=== PATIENT | male | born 1980 | race Asian ===

== ENCOUNTER 2018-11-27 12:21 | Emergency (ER) | payer OTHER ==
[~2018-11-27] VITALS: Ht 175.3 cm; Wt 70.5 kg
[~2018-11-27 12:21] MED LIST: GLIP5 PO; IPRA4AER IH; METF500T7 PO; METO25 PO; PRED10 PO; SERT100T12 PO
[2018-11-27] MEDS ORDERED: IPRATROPIUM BROMIDE 0.5 MG/2.5 ML NEB SOLUTION NEB ONE (12:30)
[2018-11-27] MEDS ORDERED: PredniSONE 20 MG TABLET PO ONE (12:30)
[2018-11-27] MEDS ORDERED: ALBUTEROL SULFATE 2.5 MG/0.5 ML NEB SOLUTION NEB ONE (12:30)
[2018-11-27 14:12] VITALS: BP 132/81
== END 2018-11-27 14:18 | disposition home or self-care (01) ==
LOC: EMS 12:22
DX: J45.901 Unspecified asthma with (acute) exacerbation (principal); I10 Essential (primary) hypertension; F31.9 Bipolar disorder, unspecified; F15.90 Other stimulant use, unspecified, uncomplicated; F17.210 Nicotine dependence, cigarettes, uncomplicated; Z79.84 Long term (current) use of oral hypoglycemic drugs
CPT/HCPCS: 71045; 94640; 99283; J7512

== ENCOUNTER 2018-12-26 13:05 | Inpatient (IN) | payer SELFPAY ==
[~2018-12-26] VITALS: Ht 175.3 cm; Wt 61.9 kg
[2018-12-26] MEDS ORDERED: IPRATROPIUM BROMIDE 0.5 MG/2.5 ML NEB SOLUTION NEB ONE ×2 (13:15→14:15)
[2018-12-26] MEDS ORDERED: ALBUTEROL SULFATE 2.5 MG/0.5 ML NEB SOLUTION NEB ONE (13:15)
[2018-12-26] MEDS ORDERED: MethylPREDNISolone SOD SUCC 125 MG/2 ML VIAL IVP ONE (14:15)
[2018-12-26] MEDS ORDERED: LEVALBUTEROL HCL 1.25 MG/0.5 ML NEB SOLUTION NEB ONE (14:15)
[2018-12-26 15:07] LABS: BASOPHILS % (AUTO) 0.4 % (0.0-2.0); EOSINOPHILS % (AUTO) 3.1 % (1.0-6.0); HEMATOCRIT 49.7 % (41-53); LYMPHOCYTES # (AUTO) 0.8 K/uL (1.0-4.8); LYMPHOCYTES % (AUTO) 10.4 % (22.0-44.0); MEAN CORPUSCULAR HEMOGLOBIN 27.2 pg (26.0-34.0); MEAN CORPUSCULAR HGB CONC 32.2 G/dL (31.0-37.0); MEAN CORPUSCULAR VOLUME 85 fL (80-100); MONOCYTES # (AUTO) 0.8 K/uL (0.1-1.0); MONOCYTES % (AUTO) 10.6 % (2.0-9.0); NEUTROPHILS # (AUTO) 5.7 K/uL (1.8-7.7); NEUTROPHILS % (AUTO) 75.5 % (40.0-70.0); PLATELET COUNT (AUTO) 354 K/uL (150-450); RED BLOOD CELL COUNT(AUTO) 5.87 MIL/uL (4.50-5.90); RED CELL DISTRIBUTION WIDTH 16.7 % (11.5-14.5)
[2018-12-26 15:20] LABS: ANION GAP 11 mmol/L (8-16); CALCIUM, TOTAL 9.9 mg/dL (8.8-10.5); CARBON DIOXIDE 29 mmol/L (22-29); CHLORIDE 101 mmol/L (98-107); CREATININE 0.86 mg/dL (0.60-1.30); GLOMERULAR FILTR. RATE CALC > 60 mL/min (>60); GLUCOSE,RANDOM 156 mg/dL (70-110); POTASSIUM 5.1 mmol/L (3.5-5.1); SODIUM SERUM 141 mmol/L (136-145); UREA NITROGEN, BLOOD 9 mg/dL (7-18)
[2018-12-26 15:24] LABS: ALANINE AMINOTRANSFERASE 18 U/L (12-78); ALBUMIN 4.5 g/dL (3.4-5.0); ALKALINE PHOSPHATASE 107 U/L (46-116); ASPARTATE AMINOTRANSFERASE 19 U/L (15-37); BILIRUBIN,TOTAL 0.4 mg/dL (0.1-1.0); TOTAL PROTEIN, SERUM 9.1 g/dL (6.4-8.2)
[2018-12-26] MEDS ORDERED: MORPHINE SULFATE 2 MG/ML SYRINGE IVP PRN (17:00)
[2018-12-26] MEDS ORDERED: BISACODYL 10 MG RECTAL RECTAL SUPPOSITORY PR PRN (17:00)
[2018-12-26] MEDS ORDERED: ONDANSETRON HCL 4 MG/2 ML VIAL IVP PRN (17:00)
[2018-12-26] MEDS ORDERED: ALBUTEROL SULFATE 2.5 MG/0.5 ML NEB SOLUTION NEB PRN (17:00)
[2018-12-26] MEDS ORDERED: ACETAMINOPHEN 325 MG TABLET PO PRN (17:00)
[2018-12-26] MEDS ORDERED: IPRATROPIUM BROMIDE 0.5 MG/2.5 ML NEB SOLUTION NEB PRN (17:00)
[2018-12-26] MEDS ORDERED: MAGNESIUM HYDROXIDE SUSPENSION 30 ML UDCUP PO PRN (17:00)
[2018-12-26] MEDS ORDERED: ZOLPIDEM TARTRATE 5 MG TABLET PO PRN (17:00)
[2018-12-26 17:47] VITALS: BP 149/102
[2018-12-26 17:59] LABS: ABG A-A DIFF O2 39.8 mmHg (10-20.0); ABG BASE EXCESS -0.7 mmol/L (-2.0-3.0); ABG CARBOXYHEMOGLOBIN 0.1 % (0.0-1.5); ABG HCO3 23.9 mmol/L (22.0-26.0); ABG METHEMOGLOBIN 0.3 % (0.0-1.5); ABG OXYGEN CONTENT 20.1 mL/dL (15.0-23.0); ABG OXYGEN SATURATION 97.9 % (95.0-98.0); ABG OXYHEMOGLOBIN 97.5 % (94.0-100.0); ABG PCO2 41 mmHg (35-45); ABG PH 7.389 (7.350-7.450); ABG TOTAL HEMOGLOBIN 14.6 G/dL (12.0-18.0); PO2, ARTERIAL BG 111.5 mmHg (92.0-100.0); SOURCE, BLOOD GAS ARTERIAL; TEMPERATURE, FAHRENHEIT, BG 98.5 FAHREN (96.0-98.6)
[2018-12-26 18:00] LABS: O2 DEVICE,BLOOD GAS CANNULA (ROOM AIR); SITE, BLOOD GAS LFT RADIAL
[2018-12-26] MEDS: MetFORMIN HCL 500 MG ER TABLET PO SCH ×2 (18:00→18:28)
[2018-12-26] MEDS: MethylPREDNISolone SOD SUCC 125 MG/2 ML VIAL IVP SCH (18:29)
[2018-12-26] MEDS: GlipiZIDE 5 MG TABLET PO SCH (18:29)
[2018-12-26] MEDS: ALBUTEROL SULFATE 2.5 MG/0.5 ML NEB SOLUTION NEB SCH (19:19)
[2018-12-26] MEDS: IPRATROPIUM BROMIDE 0.5 MG/2.5 ML NEB SOLUTION NEB SCH (19:19)
[2018-12-26 19:42] VITALS: BP 140/94
[2018-12-26] MEDS: DOCUSATE SODIUM 100 MG CAPSULE PO SCH (20:47)
[2018-12-26] MEDS: AZITHROMYCIN 500 MG/NS 250 ML IV SCH (20:47)
[2018-12-26] MEDS: GuaiFENesin SR 600 MG ER TABLET PO SCH (20:47)
[2018-12-26] MEDS: BENZONATATE 100 MG CAPSULE PO SCH (20:48)
[2018-12-26] MEDS: METOPROLOL TARTRATE 25 MG TABLET PO SCH (20:49)
[2018-12-26] MEDS ORDERED: SODIUM CHLORIDE 0.9% 250 ML IV ONE (20:55)
[2018-12-26] MEDS ORDERED: DEXTROSE 50%-WATER 25 GM/50 ML SYRINGE IVP PRN (21:00)
[2018-12-26] MEDS: INSULIN LISPRO 100 UNITS/ML SQ PRN (21:05)
[2018-12-26 21:45] LABS: GLUCOMETER DEV NAME(LOC) 5S.1; GLUCOSE,POINT OF CARE 346 MG/DL (70-110)
[2018-12-26 21:50] LABS: GLUCOMETER DEV NAME(LOC) 5S.1; GLUCOSE,POINT OF CARE 265 MG/DL (70-110)
[2018-12-26] MEDS: CefTRIAXone 1 GM/DEXTROSE 50 ML IV SCH (22:10)
[2018-12-27 00:11] VITALS: BP 145/94
[2018-12-27] MEDS: HEPARIN SODIUM,PORCINE 5,000 UNITS/ML VIAL SQ SCH ×4 (00:20→23:32)
[2018-12-27] MEDS: MethylPREDNISolone SOD SUCC 125 MG/2 ML VIAL IVP SCH ×5 (00:20→23:32)
[2018-12-27] MEDS: ALBUTEROL SULFATE 2.5 MG/0.5 ML NEB SOLUTION NEB SCH ×4 (01:26→20:00)
[2018-12-27] MEDS: IPRATROPIUM BROMIDE 0.5 MG/2.5 ML NEB SOLUTION NEB SCH ×4 (01:26→20:00)
[2018-12-27 04:16] VITALS: BP 131/86
[2018-12-27] MEDS: INSULIN LISPRO 100 UNITS/ML SQ PRN ×4 (05:46→20:09)
[2018-12-27] MEDS: GlipiZIDE 5 MG TABLET PO SCH ×2 (05:47→18:28)
[2018-12-27 07:56] VITALS: BP 117/90
[2018-12-27] MEDS: MetFORMIN HCL 500 MG ER TABLET PO SCH ×2 (08:20→18:28)
[2018-12-27] MEDS: GuaiFENesin SR 600 MG ER TABLET PO SCH ×2 (08:21→20:03)
[2018-12-27] MEDS: DOCUSATE SODIUM 100 MG CAPSULE PO SCH ×2 (08:21→20:04)
[2018-12-27] MEDS: METOPROLOL TARTRATE 25 MG TABLET PO SCH ×2 (08:23→20:04)
[2018-12-27] MEDS: SERTRALINE HCL 100 MG TABLET PO SCH (08:23)
[2018-12-27] MEDS: BENZONATATE 100 MG CAPSULE PO SCH ×3 (08:23→20:04)
[2018-12-27] MEDS: PANTOPRAZOLE SODIUM 40 MG DR TABLET PO SCH (08:23)
[2018-12-27 11:12] VITALS: BP 118/80
[2018-12-27 14:59] VITALS: BP 136/86
[2018-12-27 16:25] LABS: GLUCOMETER DEV NAME(LOC) 5S.2; GLUCOSE,POINT OF CARE 142 MG/DL (70-110)
[2018-12-27 16:25] LABS: GLUCOMETER DEV NAME(LOC) 5S.2; GLUCOSE,POINT OF CARE 276 MG/DL (70-110)
[2018-12-27 16:26] LABS: GLUCOMETER DEV NAME(LOC) 5S.2; GLUCOSE,POINT OF CARE 144 MG/DL (70-110)
[2018-12-27] MEDS: HYDROCODONE/ACETAMINOPHEN 5-325 MG TABLET PO PRN (18:32)
[2018-12-27 19:21] VITALS: BP 131/83
[2018-12-27] MEDS: AZITHROMYCIN 500 MG/NS 250 ML IV SCH (20:03)
[2018-12-27] MEDS: CefTRIAXone 1 GM/DEXTROSE 50 ML IV SCH (21:10)
[2018-12-28] VITALS (7 sets, daily range): BP systolic 125–140; BP diastolic 77–93
[2018-12-28] MEDS: ALBUTEROL SULFATE 2.5 MG/0.5 ML NEB SOLUTION NEB SCH ×4 (03:43→20:18)
[2018-12-28] MEDS: IPRATROPIUM BROMIDE 0.5 MG/2.5 ML NEB SOLUTION NEB SCH ×4 (03:43→20:18)
[2018-12-28] MEDS: INSULIN LISPRO 100 UNITS/ML SQ PRN ×4 (05:45→23:09)
[2018-12-28] MEDS: GlipiZIDE 5 MG TABLET PO SCH ×2 (05:45→17:49)
[2018-12-28] MEDS: MethylPREDNISolone SOD SUCC 125 MG/2 ML VIAL IVP SCH ×4 (05:45→22:56)
[2018-12-28 06:05] LABS: GLUCOMETER DEV NAME(LOC) 5S.2; GLUCOSE,POINT OF CARE 216 MG/DL (70-110)
[2018-12-28 06:05] LABS: GLUCOMETER DEV NAME(LOC) 5S.2; GLUCOSE,POINT OF CARE 218 MG/DL (70-110)
[2018-12-28 06:25] LABS: GLUCOMETER DEV NAME(LOC) 5S.1; GLUCOSE,POINT OF CARE 178 MG/DL (70-110)
[2018-12-28] MEDS: HEPARIN SODIUM,PORCINE 5,000 UNITS/ML VIAL SQ SCH ×3 (08:00→22:57)
[2018-12-28] MEDS: SERTRALINE HCL 100 MG TABLET PO SCH (08:40)
[2018-12-28] MEDS: GuaiFENesin SR 600 MG ER TABLET PO SCH ×2 (08:40→22:55)
[2018-12-28] MEDS: METOPROLOL TARTRATE 25 MG TABLET PO SCH ×2 (08:40→22:56)
[2018-12-28] MEDS: MetFORMIN HCL 500 MG ER TABLET PO SCH ×2 (08:40→17:48)
[2018-12-28] MEDS: BENZONATATE 100 MG CAPSULE PO SCH ×3 (08:40→22:56)
[2018-12-28] MEDS: PANTOPRAZOLE SODIUM 40 MG DR TABLET PO SCH (08:40)
[2018-12-28] MEDS: DOCUSATE SODIUM 100 MG CAPSULE PO SCH ×2 (08:40→21:00)
[2018-12-28] MEDS: HYDROCODONE/ACETAMINOPHEN 5-325 MG TABLET PO PRN (16:02)
[2018-12-28] MEDS: BUDESONIDE 0.5 MG/2 ML NEB SOLUTION NEB SCH (20:18)
[2018-12-28 21:05] LABS: GLUCOMETER DEV NAME(LOC) 5S.2; GLUCOSE,POINT OF CARE 244 MG/DL (70-110)
[2018-12-28 21:05] LABS: GLUCOMETER DEV NAME(LOC) 5S.1; GLUCOSE,POINT OF CARE 299 MG/DL (70-110)
[2018-12-28] MEDS: CefTRIAXone 1 GM/DEXTROSE 50 ML IV SCH (22:55)
[2018-12-28] MEDS: AZITHROMYCIN 500 MG/NS 250 ML IV SCH (22:55)
[2018-12-29] MEDS: ALBUTEROL SULFATE 2.5 MG/0.5 ML NEB SOLUTION NEB SCH ×3 (01:44→14:00)
[2018-12-29] MEDS: IPRATROPIUM BROMIDE 0.5 MG/2.5 ML NEB SOLUTION NEB SCH ×3 (01:44→14:00)
[2018-12-29 05:07] VITALS: BP 128/88
[2018-12-29] MEDS: MethylPREDNISolone SOD SUCC 125 MG/2 ML VIAL IVP SCH ×2 (06:28→12:18)
[2018-12-29] MEDS: INSULIN LISPRO 100 UNITS/ML SQ PRN ×2 (06:30→12:22)
[2018-12-29] MEDS: GlipiZIDE 5 MG TABLET PO SCH (06:34)
[2018-12-29] MEDS ORDERED: 0.9% SODIUM CHLORIDE 5 ML NEB SOLUTION NEB ONE (07:17)
[2018-12-29] MEDS: BUDESONIDE 0.5 MG/2 ML NEB SOLUTION NEB SCH (07:24)
[2018-12-29 08:07] VITALS: BP 144/93
[2018-12-29] MEDS: GuaiFENesin SR 600 MG ER TABLET PO SCH (08:34)
[2018-12-29] MEDS: DOCUSATE SODIUM 100 MG CAPSULE PO SCH (08:34)
[2018-12-29] MEDS: PANTOPRAZOLE SODIUM 40 MG DR TABLET PO SCH (08:34)
[2018-12-29] MEDS: SERTRALINE HCL 100 MG TABLET PO SCH (08:34)
[2018-12-29] MEDS: MetFORMIN HCL 500 MG ER TABLET PO SCH (08:34)
[2018-12-29] MEDS: BENZONATATE 100 MG CAPSULE PO SCH ×2 (08:34→15:50)
[2018-12-29] MEDS: HEPARIN SODIUM,PORCINE 5,000 UNITS/ML VIAL SQ SCH (08:35)
[2018-12-29] MEDS: METOPROLOL TARTRATE 25 MG TABLET PO SCH (08:35)
[2018-12-29 11:04] LABS: GLUCOMETER DEV NAME(LOC) 5S.1; GLUCOSE,POINT OF CARE 307 MG/DL (70-110)
[2018-12-29 11:59] LABS: GLUCOMETER DEV NAME(LOC) 5S.2; GLUCOSE,POINT OF CARE 273 MG/DL (70-110)
[2018-12-29 11:59] LABS: GLUCOMETER DEV NAME(LOC) 5S.2; GLUCOSE,POINT OF CARE 239 MG/DL (70-110)
[2018-12-29 12:08] VITALS: BP 138/89
[2018-12-29] MEDS ORDERED: ADV250 IH (15:22)
== END 2018-12-29 16:00 | disposition home or self-care (01) | DRG 189 ==
LOC: EMS 13:05 → 5S 16:18
PROVIDERS: ADMIT Internal Medicine; ATTEND Internal Medicine
PROC: 5A09357 Assistance with Respiratory Ventilation, Less than 24 Consecutive Hours, Continuous Positive Airway Pressure (ICD-10-PCS; principal; 2018-12-26)
DX: J96.00 Acute respiratory failure, unspecified whether with hypoxia or hypercapnia (principal); E43 Unspecified severe protein-calorie malnutrition; J45.901 Unspecified asthma with (acute) exacerbation; E11.9 Type 2 diabetes mellitus without complications; I10 Essential (primary) hypertension; F31.9 Bipolar disorder, unspecified; R56.9 Unspecified convulsions; F41.9 Anxiety disorder, unspecified; F10.10 Alcohol abuse, uncomplicated; F17.200 Nicotine dependence, unspecified, uncomplicated; Z68.20 Body mass index [BMI] 20.0-20.9, adult
CPT/HCPCS: 82805; 93005; 94640; 94660; 99291; G0378; J0456; J0696; J1644; J2930; J7050

== ENCOUNTER 2020-08-17 16:09 | Inpatient (IN) | payer OTHER ==
[~2020-08-17] VITALS: Ht 167.6 cm; Wt 56.7 kg
[~2020-08-17 16:09] MED LIST changes: +FLUT1DIS6 IH; +METF-911 PO; -METF500T7 PO
[2020-08-17] MEDS ORDERED: 0.9% SODIUM CHLORIDE 10 ML SYRINGE IVP PRN ×2 (16:30→19:30)
[2020-08-17] MEDS ORDERED: ALBUTEROL SULFATE HFA 90 MCG/PUFF 8 GM INHALER IH ONE (16:30)
[2020-08-17] MEDS ORDERED: MAGNESIUM SULFATE 2 GM/WATER 50 ML IV ONE (16:45)
[2020-08-17] MEDS ORDERED: LEVALBUTEROL HCL 1.25 MG/0.5 ML NEB SOLUTION NEB ONE (16:45)
[2020-08-17] MEDS ORDERED: IPRATROPIUM BROMIDE 0.5 MG/2.5 ML NEB SOLUTION NEB ONE (16:45)
[2020-08-17] MEDS ORDERED: MethylPREDNISolone SOD SUCC 125 MG/2 ML VIAL IVP ONE (16:45)
[2020-08-17 16:57] LABS: BASOPHILS % (AUTO) 0.6 % (0.0-2.0); EOSINOPHILS % (AUTO) 6.4 % (1.0-6.0); HEMATOCRIT 46.7 % (41-53); HEMOGLOBIN 15.2 g/dL (13.5-17.5); LYMPHOCYTES % (AUTO) 13.4 % (22.0-44.0); MEAN CORPUSCULAR HEMOGLOBIN 28.6 pg (26.0-34.0); MEAN CORPUSCULAR HGB CONC 32.5 G/dL (31.0-37.0); MEAN CORPUSCULAR VOLUME 88 fL (80-100); MONOCYTES # (AUTO) 0.6 K/uL (0.1-1.0); MONOCYTES % (AUTO) 8.5 % (2.0-9.0); NEUTROPHILS # (AUTO) 5.3 K/uL (1.8-7.7); NEUTROPHILS % (AUTO) 71.1 % (40.0-70.0); PLATELET COUNT (AUTO) 283 K/uL (150-450); RED BLOOD CELL COUNT(AUTO) 5.31 MIL/uL (4.50-5.90); RED CELL DISTRIBUTION WIDTH 13.2 % (11.5-14.5)
[2020-08-17 17:07] LABS: ANION GAP 8 mmol/L (8-16); CALCIUM, TOTAL 9.5 mg/dL (8.8-10.5); CARBON DIOXIDE 30 mmol/L (22-29); CHLORIDE 99 mmol/L (98-107); CREATININE 0.95 mg/dL (0.60-1.30); GLOMERULAR FILTR. RATE CALC > 60 mL/min (>60); GLUCOSE,RANDOM 107 mg/dL (70-110); POTASSIUM 4.6 mmol/L (3.5-5.1); SODIUM SERUM 137 mmol/L (136-145); UREA NITROGEN, BLOOD 10 mg/dL (7-18)
[2020-08-17 17:13] LABS: D-DIMER 1.08 mg/L FEU (0.00-0.50); INR 0.9 (0.9-1.1); PROTHROMBIN TIME 9.8 SEC (9.4-11.6)
[2020-08-17 17:16] LABS: B-TYPE NATRIURETIC PEPTIDE 23 pg/mL (0-100)
[2020-08-17 17:28] LABS: COVID AG,FIA SOURCE NASOPHARYNGEAL
[2020-08-17] MEDS ORDERED: LORazepam 2 MG/ML VIAL IVP ONE (17:30)
[2020-08-17 17:32] LABS: ALANINE AMINOTRANSFERASE 23 U/L (12-78); ALBUMIN 3.8 g/dL (3.4-5.0); ALKALINE PHOSPHATASE 82 U/L (46-116); ASPARTATE AMINOTRANSFERASE 17 U/L (15-37); BILIRUBIN,TOTAL 0.3 mg/dL (0.1-1.0); C-REACTIVE PROTEIN QUANT 3.33 mg/dL (0.00-0.30); CREATINE KINASE, TOTAL ONLY 205 U/L (39-308); FERRITIN 125 ng/mL (26-388); TOTAL PROTEIN, SERUM 8.3 g/dL (6.4-8.2)
[2020-08-17 17:38] LABS: LACTIC ACID 2.7 mmol/L (0.4-2.0)
[2020-08-17 18:55] LABS: ABG A-A DIFF O2 31.9 mmHg (10-20.0); ABG BASE EXCESS 1.2 mmol/L (-2.0-3.0); ABG CARBOXYHEMOGLOBIN 0.6 % (0.0-1.5); ABG METHEMOGLOBIN 0.1 % (0.0-1.5); ABG OXYGEN CONTENT 20.1 mL/dL (15.0-23.0); ABG OXYHEMOGLOBIN 91.4 % (94.0-100.0); ABG PCO2 45 mmHg (35-45); ABG PH 7.383 (7.35-7.450); ABG TOTAL HEMOGLOBIN 15.7 G/dL (12.0-18.0); O2 DEVICE,BLOOD GAS ROOM AIR (ROOM AIR); PO2, ARTERIAL BG 63.8 mmHg (88.0-96.0); SITE, BLOOD GAS LFT RADIAL; SOURCE, BLOOD GAS ARTERIAL; TEMPERATURE, FAHRENHEIT, BG 98.6 FAHREN (96.0-98.6)
[2020-08-17] MEDS ORDERED: ONDANSETRON HCL 4 MG/2 ML VIAL IVP PRN (19:30)
[2020-08-17] MEDS ORDERED: IPRATROPIUM BROMIDE 0.5 MG/2.5 ML NEB SOLUTION NEB PRN (19:30)
[2020-08-17] MEDS ORDERED: ALBUTEROL SULFATE 2.5 MG/0.5 ML NEB SOLUTION NEB PRN ×2 (19:30→20:45)
[2020-08-17] MEDS ORDERED: ACETAMINOPHEN 325 MG TABLET PO PRN (19:30)
[2020-08-17] MEDS ORDERED: SODIUM CHLORIDE 0.9% 100 ML ONE (19:40)
[2020-08-17] MEDS ORDERED: IOVERSOL 350 MG/ML 100 ML VIAL ONE (19:40)
[2020-08-17] MEDS ORDERED: OXYGEN THERAPY IH SCH (20:00)
[2020-08-17] MEDS ORDERED: LORazepam 2 MG TABLET PO PRN (22:15)
[2020-08-17] MEDS ORDERED: DEXTROSE 50%-WATER 25 GM/50 ML SYRINGE IVP PRN (22:15)
[2020-08-17] MEDS ORDERED: IPRATROPIUM BROMIDE 0.5 MG/2.5 ML NEB SOLUTION NEB SCH (23:00)
[2020-08-17] MEDS ORDERED: ALBUTEROL SULFATE 2.5 MG/0.5 ML NEB SOLUTION NEB SCH (23:00)
[2020-08-17] MEDS: 1: MAGNESIUM SULFATE 2 GM, MVI, ADULT NO.1 WITH VIT K 10 ML, THIAMINE 100 MG, FOLIC ACID IV SCH ×5 (23:58)
[2020-08-18] VITALS (11 sets, daily range): BP systolic 136–157; BP diastolic 77–109
[2020-08-18] MEDS ORDERED: LORazepam 1 MG TABLET PO PRN ×2 (00:16→07:00)
[2020-08-18] MEDS: FLUTICASONE/SALMETEROL 250-50 MCG/INH INHALER [60] IH SCH ×3 (00:32→21:21)
[2020-08-18] MEDS: INSULIN LISPRO 100 UNITS/ML SQ PRN ×3 (05:57→20:36)
[2020-08-18 06:28] LABS: GLUCOMETER DEV NAME(LOC) 6N.1; GLUCOSE,POINT OF CARE 225 MG/DL (70-110)
[2020-08-18 06:43] LABS: BASOPHILS % (AUTO) 0.2 % (0.0-2.0); EOSINOPHILS % (AUTO) 0 % (1.0-6.0); HEMATOCRIT 42.3 % (41-53); LYMPHOCYTES # (AUTO) 0.4 K/uL (1.0-4.8); LYMPHOCYTES % (AUTO) 9.7 % (22.0-44.0); MEAN CORPUSCULAR HEMOGLOBIN 28.9 pg (26.0-34.0); MEAN CORPUSCULAR HGB CONC 33.2 G/dL (31.0-37.0); MEAN CORPUSCULAR VOLUME 87 fL (80-100); MONOCYTES # (AUTO) 0.1 K/uL (0.1-1.0); MONOCYTES % (AUTO) 2.9 % (2.0-9.0); NEUTROPHILS # (AUTO) 3.5 K/uL (1.8-7.7); PLATELET COUNT (AUTO) 309 K/uL (150-450); RED BLOOD CELL COUNT(AUTO) 4.85 MIL/uL (4.50-5.90); RED CELL DISTRIBUTION WIDTH 13.4 % (11.5-14.5)
[2020-08-18 07:03] LABS: ALANINE AMINOTRANSFERASE 20 U/L (12-78); ALBUMIN 3.5 g/dL (3.4-5.0); ALKALINE PHOSPHATASE 72 U/L (46-116); ANION GAP 9 mmol/L (8-16); ASPARTATE AMINOTRANSFERASE 21 U/L (15-37); BILIRUBIN,TOTAL 0.4 mg/dL (0.1-1.0); CARBON DIOXIDE 27 mmol/L (22-29); CHLORIDE 101 mmol/L (98-107); CREATININE 1.07 mg/dL (0.60-1.30); GLOMERULAR FILTR. RATE CALC > 60 mL/min (>60); GLUCOSE,RANDOM 242 mg/dL (70-110); POTASSIUM 4.9 mmol/L (3.5-5.1); SODIUM SERUM 137 mmol/L (136-145); TOTAL PROTEIN, SERUM 7.7 g/dL (6.4-8.2); UREA NITROGEN, BLOOD 19 mg/dL (7-18)
[2020-08-18 07:04] LABS: NEUTROPHILS % (AUTO) 87.2 % (40.0-70.0)
[2020-08-18 08:10] LABS: AMPHET/METH SCREEN,URINE POSITIVE (NEGATIVE); BARBITURATE SCREEN, URINE NEGATIVE (NEGATIVE); BENZODIAZEPINES SCREEN,URINE NEGATIVE (NEGATIVE); CANNABINOID SCREEN,URINE NEGATIVE (NEGATIVE); COCAINE SCREEN,URINE NEGATIVE (NEGATIVE); METHADONE SCREEN, URINE NEGATIVE (NEGATIVE); OPIATE SCREEN,URINE NEGATIVE (NEGATIVE); PHENCYCLIDINE SCREEN,URINE NEGATIVE (NEGATIVE)
[2020-08-18] MEDS: LORazepam 1 MG TABLET PO SCH ×4 (08:58→20:30)
[2020-08-18] MEDS: MethylPREDNISolone SOD SUCC 125 MG/2 ML VIAL IVP SCH (08:58)
[2020-08-18] MEDS: SERTRALINE HCL 100 MG TABLET PO SCH (08:59)
[2020-08-18] MEDS: PANTOPRAZOLE SODIUM 40 MG DR TABLET PO SCH (09:16)
[2020-08-18] MEDS ORDERED: BENZONATATE 100 MG CAPSULE PO PRN (09:30)
[2020-08-18 12:09] LABS: GLUCOMETER DEV NAME(LOC) 6N.1; GLUCOSE,POINT OF CARE 124 MG/DL (70-110)
[2020-08-18] MEDS ORDERED: SODIUM CHLORIDE 0.9% 1,000 ML ONE (13:36)
[2020-08-18] MEDS: 1: MAGNESIUM SULFATE 2 GM, MVI, ADULT NO.1 WITH VIT K 10 ML, THIAMINE 100 MG, FOLIC ACID IV SCH ×5 (13:37)
[2020-08-18] MEDS ORDERED: CloNIDine HCL 0.1 MG TABLET PO PRN (16:45)
[2020-08-18 17:18] LABS: GLUCOMETER DEV NAME(LOC) 4E.2; GLUCOSE,POINT OF CARE 174 MG/DL (70-110)
[2020-08-18] MEDS ORDERED: DIAZEPAM 5 MG/ML 2 ML SYRINGE IVP ONE (18:30)
[2020-08-18] MEDS ORDERED: INSULIN GLARGINE,HUM.REC.ANLOG 100 UNITS/ML SQ SCH (21:00)
[2020-08-18 21:04] LABS: GLUCOMETER DEV NAME(LOC) 4E.2; GLUCOSE,POINT OF CARE 184 MG/DL (70-110)
[2020-08-19] MEDS ORDERED: SODIUM CHLORIDE 0.9% 1,000 ML ONE (05:21)
[2020-08-19 06:13] LABS: GLUCOMETER DEV NAME(LOC) 4E.2; GLUCOSE,POINT OF CARE 77 MG/DL (70-110)
[2020-08-19 06:44] LABS: BASOPHILS % (AUTO) 0.4 % (0.0-2.0); EOSINOPHILS % (AUTO) 0.7 % (1.0-6.0); HEMATOCRIT 42.3 % (41-53); HEMOGLOBIN 13.8 g/dL (13.5-17.5); LYMPHOCYTES # (AUTO) 1.1 K/uL (1.0-4.8); MEAN CORPUSCULAR HEMOGLOBIN 28.4 pg (26.0-34.0); MEAN CORPUSCULAR HGB CONC 32.5 G/dL (31.0-37.0); MEAN CORPUSCULAR VOLUME 87 fL (80-100); MONOCYTES # (AUTO) 0.6 K/uL (0.1-1.0); MONOCYTES % (AUTO) 8.4 % (2.0-9.0); NEUTROPHILS % (AUTO) 74.5 % (40.0-70.0); PLATELET COUNT (AUTO) 297 K/uL (150-450); RED BLOOD CELL COUNT(AUTO) 4.85 MIL/uL (4.50-5.90); RED CELL DISTRIBUTION WIDTH 12.9 % (11.5-14.5)
[2020-08-19 07:13] LABS: ANION GAP 7 mmol/L (8-16); CALCIUM, TOTAL 8.9 mg/dL (8.8-10.5); CARBON DIOXIDE 29 mmol/L (22-29); CHLORIDE 105 mmol/L (98-107); CREATININE 0.94 mg/dL (0.60-1.30); GLOMERULAR FILTR. RATE CALC > 60 mL/min (>60); GLUCOSE,RANDOM 72 mg/dL (70-110); POTASSIUM 4.4 mmol/L (3.5-5.1); SODIUM SERUM 141 mmol/L (136-145); UREA NITROGEN, BLOOD 19 mg/dL (7-18)
[2020-08-19] MEDS: 1: MAGNESIUM SULFATE 2 GM, MVI, ADULT NO.1 WITH VIT K 10 ML, THIAMINE 100 MG, FOLIC ACID IV SCH ×5 (08:00)
[2020-08-19] MEDS: LORazepam 1 MG TABLET PO SCH (08:15)
[2020-08-19] MEDS: MethylPREDNISolone SOD SUCC 125 MG/2 ML VIAL IVP SCH (08:15)
[2020-08-19] MEDS: PANTOPRAZOLE SODIUM 40 MG DR TABLET PO SCH (08:15)
[2020-08-19] MEDS: SERTRALINE HCL 100 MG TABLET PO SCH (08:15)
[2020-08-19] MEDS: FLUTICASONE/SALMETEROL 250-50 MCG/INH INHALER [60] IH SCH (08:21)
[2020-08-19 10:00] VITALS: BP_SYST 116; BP_SYST 16; BP_DIAS 99
[2020-08-19] MEDS ORDERED: OMEP20 PO (11:02)
[2020-08-19] MEDS ORDERED: PRED10 PO (11:02)
[2020-08-19] MEDS ORDERED: IPRA4AER IH (11:02)
[2020-08-19] MEDS ORDERED: FLUT1DIS6 IH (11:02)
[2020-08-20] MEDS ORDERED: LORazepam 1 MG TABLET PO PRN (07:00)
[2020-08-20] MEDS ORDERED: LORazepam 1 MG TABLET PO SCH (09:00)
[2020-08-21] MEDS ORDERED: LORazepam 1 MG TABLET PO PRN (07:00)
== END 2020-08-19 13:27 | disposition home or self-care (01) | DRG 141 ==
LOC: EMS 16:12 → 4E 19:36
PROVIDERS: ADMIT Internal Medicine; ATTEND Internal Medicine
DX: J45.901 Unspecified asthma with (acute) exacerbation (principal); G92 Toxic encephalopathy; E87.2 Acidosis; E11.9 Type 2 diabetes mellitus without complications; F10.20 Alcohol dependence, uncomplicated; F41.9 Anxiety disorder, unspecified; F32.9 Major depressive disorder, single episode, unspecified; Z20.828 Contact with and (suspected) exposure to other viral communicable diseases
CPT/HCPCS: 36600; 71275; 82728; 82805; 83605; 84145; 85379; 86140; 87426; 93005; 99291; G0378; J1815; J2060; J2930; J3411; J3475; J3490; J3535; J7030; J7050; 36415-L1; 36415-TC; 71045-TC; U0003; Z7610

== ENCOUNTER 2021-07-15 08:34 | Emergency (ER) | payer OTHER ==
[~2021-07-15] VITALS: Ht 177.8 cm; Wt 70.5 kg
[~2021-07-15 08:34] MED LIST changes: +BACTDSB PO; -FLUT1DIS6 IH; -GLIP5 PO; +HYDR-4723 PO; -IPRA4AER IH; -METO25 PO; -PRED10 PO; -SERT100T12 PO
[2021-07-15] MEDS ORDERED: IPRATROPIUM BROMIDE 0.5 MG/2.5 ML NEB SOLUTION NEB ONE (09:30)
[2021-07-15] MEDS ORDERED: PredniSONE 20 MG TABLET PO ONE (09:30)
[2021-07-15] MEDS ORDERED: ALBUTEROL SULFATE 5 MG/ML 20 ML NEB SOLN [BULK] NEB ONE (09:30)
[2021-07-15 10:36] LABS: COVID AG,FIA SOURCE NASAL SWAB
[2021-07-15 12:19] VITALS: BP 156/80
== END 2021-07-15 12:27 | disposition home or self-care (01) ==
LOC: EMS 08:39
DX: J45.901 Unspecified asthma with (acute) exacerbation (principal); F10.20 Alcohol dependence, uncomplicated; F31.9 Bipolar disorder, unspecified; E11.9 Type 2 diabetes mellitus without complications; I10 Essential (primary) hypertension; Z20.822 Contact with and (suspected) exposure to COVID-19
CPT/HCPCS: 71045; 87426; 94644; 99284; J7512; 94640; J7611

== ENCOUNTER 2022-01-19 04:58 | Emergency (ER) | payer OTHER ==
[~2022-01-19] VITALS: Ht 175.3 cm; Wt 59.1 kg
[2022-01-19] MEDS ORDERED: PredniSONE 20 MG TABLET PO ONE (06:00)
[2022-01-19] MEDS ORDERED: ALBUTEROL SULFATE 2.5 MG/0.5 ML NEB SOLUTION NEB ONE ×2 (06:00→08:00)
[2022-01-19] MEDS ORDERED: IPRATROPIUM BROMIDE 0.5 MG/2.5 ML NEB SOLUTION NEB ONE (06:00)
[2022-01-19 06:10] LABS: BASOPHILS % (AUTO) 0.8 % (0.0-2.0); EOSINOPHILS % (AUTO) 4.7 % (1.0-6.0); HEMATOCRIT 39.3 % (41-53); HEMOGLOBIN 13.1 g/dL (13.5-17.5); LYMPHOCYTES % (AUTO) 11.2 % (22.0-44.0); MEAN CORPUSCULAR HEMOGLOBIN 27.7 pg (26.0-34.0); MEAN CORPUSCULAR HGB CONC 33.5 G/dL (31.0-37.0); MEAN CORPUSCULAR VOLUME 83 fL (80-100); MONOCYTES # (AUTO) 0.7 K/uL (0.1-1.0); NEUTROPHILS # (AUTO) 6.7 K/uL (1.8-7.7); NEUTROPHILS % (AUTO) 75.3 % (40.0-70.0); PLATELET COUNT (AUTO) 325 K/uL (150-450); RED BLOOD CELL COUNT(AUTO) 4.74 MIL/uL (4.50-5.90); RED CELL DISTRIBUTION WIDTH 14.5 % (11.5-14.5)
[2022-01-19 06:18] LABS: ANION GAP 7 mmol/L (8-16); CALCIUM, TOTAL 9.4 mg/dL (8.8-10.5); CARBON DIOXIDE 28 mmol/L (22-29); CHLORIDE 102 mmol/L (98-107); CREATININE 0.95 mg/dL (0.60-1.30); GLOMERULAR FILTR. RATE CALC > 60 mL/min (>60); GLUCOSE,RANDOM 98 mg/dL (70-110); POTASSIUM 4.9 mmol/L (3.5-5.1); SODIUM SERUM 137 mmol/L (136-145); UREA NITROGEN, BLOOD 14 mg/dL (7-18)
[2022-01-19 06:25] LABS: ALANINE AMINOTRANSFERASE 21 U/L (12-78); ALBUMIN 3.3 g/dL (3.4-5.0); ALKALINE PHOSPHATASE 65 U/L (46-116); ASPARTATE AMINOTRANSFERASE 23 U/L (15-37); BILIRUBIN,TOTAL 0.4 mg/dL (0.1-1.0); TOTAL PROTEIN, SERUM 7.9 g/dL (6.4-8.2)
[2022-01-19 09:07] VITALS: BP 160/87
[2022-01-19] MEDS ORDERED: PRED-554 PO (10:28)
[2022-01-19] MEDS ORDERED: ALBU6.7H9 IH (10:28)
[2022-01-19 11:33] LABS: GLUCOMETER DEV NAME(LOC) ERT.5; GLUCOSE,POINT OF CARE 84 MG/DL (70-110)
== END 2022-01-19 10:52 | disposition home or self-care (01) ==
LOC: EMS 04:58
DX: J45.901 Unspecified asthma with (acute) exacerbation (principal); I10 Essential (primary) hypertension; E11.9 Type 2 diabetes mellitus without complications; F41.9 Anxiety disorder, unspecified; F12.90 Cannabis use, unspecified, uncomplicated; F15.90 Other stimulant use, unspecified, uncomplicated; Z79.84 Long term (current) use of oral hypoglycemic drugs; Z79.899 Other long term (current) drug therapy
CPT/HCPCS: 36415; 71046; 80053; 82962; 85025; 94640; 99285; J7512; J7613

== ENCOUNTER 2022-02-19 09:28 | Emergency (ER) | payer OTHER ==
[~2022-02-19] VITALS: Ht 177.8 cm; Wt 70.5 kg
[~2022-02-19 09:28] MED LIST changes: +ALBU6.7H9 IH; +METF-81 PO; -METF-911 PO; +PRED-554 PO
[2022-02-19] MEDS ORDERED: IBUPROFEN 600 MG TABLET PO ONE (10:15)
[2022-02-19] MEDS ORDERED: ACETAMINOPHEN/CODEINE 300-30 MG TABLET PO ONE (10:15)
[2022-02-19] MEDS ORDERED: IBUP-1554 PO (10:54)
[2022-02-19] MEDS ORDERED: ACET-2080 PO (10:54)
[2022-02-19 11:12] VITALS: BP 131/70
== END 2022-02-19 11:31 | disposition home or self-care (01) ==
LOC: EMS 09:29
DX: S93.401A Sprain of unspecified ligament of right ankle, initial encounter (principal); S80.01XA Contusion of right knee, initial encounter; F10.20 Alcohol dependence, uncomplicated; F41.9 Anxiety disorder, unspecified; J45.909 Unspecified asthma, uncomplicated; F31.9 Bipolar disorder, unspecified; E11.9 Type 2 diabetes mellitus without complications; I10 Essential (primary) hypertension; F12.90 Cannabis use, unspecified, uncomplicated; F15.90 Other stimulant use, unspecified, uncomplicated; Z86.69 Personal history of other diseases of the nervous system and sense organs; Z98.890 Other specified postprocedural states; W19.XXXA Unspecified fall, initial encounter; Y93.55 Activity, bike riding; Y92.89 Other specified places as the place of occurrence of the external cause; Y99.8 Other external cause status
CPT/HCPCS: 99284; 73562-TC; 73610-TC; 73630-TC; Z7502; Z7610

== ENCOUNTER 2022-03-21 07:38 | Emergency (ER) | payer OTHER ==
[~2022-03-21] VITALS: Ht 177.8 cm; Wt 70.5 kg
[~2022-03-21 07:38] MED LIST changes: +ACET-2080 PO; +IBUP-1554 PO
[2022-03-21] MEDS ORDERED: ALBUTEROL SULFATE 5 MG/ML 20 ML NEB SOLN [BULK] NEB ONE ×2 (08:45→12:15)
[2022-03-21] MEDS ORDERED: IPRATROPIUM BROMIDE 0.5 MG/2.5 ML NEB SOLUTION NEB ONE (08:45)
[2022-03-21 13:05] VITALS: BP 132/88
[2022-03-21] MEDS ORDERED: ALBU6.7H9 IH (13:39)
[2022-03-21] MEDS ORDERED: DEXAMETHASONE 4 MG TABLET PO ONE (13:45)
== END 2022-03-21 14:15 | disposition home or self-care (01) ==
LOC: EMS 07:38
DX: J45.909 Unspecified asthma, uncomplicated (principal); F12.90 Cannabis use, unspecified, uncomplicated; F15.10 Other stimulant abuse, uncomplicated; F41.9 Anxiety disorder, unspecified; F31.9 Bipolar disorder, unspecified; E11.9 Type 2 diabetes mellitus without complications; I10 Essential (primary) hypertension
CPT/HCPCS: 99285; 71045; 94640; J8540; 94644; J7611